=== PATIENT | male | born 1990 | race Caucasian/White ===

== ENCOUNTER 2024-01-13 11:05 | Emergency (ER) | payer BC, SELFPAY ==
[2024-01-13 11:09] VITALS: BP 172/105; PULSE 99; RESP 18; TEMP 36.9; O2SAT 100
--- NOTE | 2024-01-13 11:50 | ED.GENADULT ---
HPI - General Adult General Chief complaint: Anxiety Stated complaint: Anxiety attack Time Seen by Provider: 01/13/24 11:30 Source: patient Mode of arrival: ambulatory Limitations: no limitations History of Present Illness HPI narrative: 34-year-old male, generally healthy, coming in today concerned about anxiety. Patient states that he feels that he has been suffering from anxiety for about 2 weeks. He feels overwhelmed frequently, feels his heart racing at times. He states he has had about 2, what he describes as, panic attacks. He states that he was at work when this happened 1 time and he could not function. He had to cancel a class, he teaches martial arts. He states that his heart was racing and became very nauseated. He stated that he could focus on what he was doing. The other time was today. He states that he took his kids out on a walk when he got home he felt completely overwhelmed with everything and so he came to the ER for treatment. Patient states that he does have a lot going on in his life right now. 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 He also has a toddler any 2-month-old at home. The baby does wake him and his up frequently at night. So his sleep has not been great, his appetite has been down and he feels anxious and jittery frequently. Past medical history significant for ADD as a child. Both parents have a history of anxiety. He takes no medications. Denies drug use. Related Data Previous Rx's ?Medication ?Instructions ?Recorded hydroxyzine HCl 25 mg tablet 25 mg PO BID PRN #7 tabs 01/13/24 Allergies Allergy/AdvReac Type Severity Reaction Status Date / Time No Known Drug Allergies Allergy Verified 01/13/24 11:10 Review of Systems Status of ROS: Reports: 10 or more systems reviewed and unremarkable except as noted in History and below PFSH PFS Social History Smoking Status: Never smoker Do you use any of these nicotine containing products: None Second hand tobacco smoke exposure: No How often do you have a drink containing alcohol: never AUDIT-C Alcohol total score: 0 Non-prescribed substance use: denies use Exam Narrative: Exam Narrative: Well-nourished well-developed patient in no acute distress. Alert and oriented. Answers questions appropriately. Mood and affect are appropriate. Thoughts are goal oriented and rational. No tangential or magical thinking noted. Patient speaks in full sentences without needing to catch his breath. HEENT: Normocephalic atraumatic. Pupils are equally round reactive to light. Extraocular muscles are intact. Conjunctivae are moist without any icterus noted. Moist mucous membranes. Posterior pharynx is normal. Neck is soft without any lymphadenopathy or thyromegaly. No masses are appreciated. Cardiovascular: Heart is regular rate and rhythm S1 and S2 are present without any murmurs. Lungs: Clear to auscultation bilaterally no wheezes rhonchi or rales are appreciated. Patient takes deep breaths without any discomfort. Abdomen: Soft and nontender nondistended with normal bowel sounds. Extremities: Bilateral lower extremities are without edema. Skin: Well perfused without any obvious rashes. Const: Vital Signs, click to edit/add: Vital Signs - 24 hr 01/13/24 11:09 01/13/24 12:29 Temperature 98.4 F Pulse Rate [Right Pulse Oximeter] 99 50 L Respiratory Rate 18 Blood Pressure [Ri ght Upper Arm] 172/105 H 149/89 H Pulse Oximetry 100 100 Oxygen Delivery Me thod Room Air Room Air Course Course ED Course: Patient received a dose of oral Ativan which did help him feel significantly better. His blood pressure was recheck to make came down to 149/89, his pulse went from 99-50 which according the patient is around his baseline. Blood work was unremarkable, as we look for other sources of acute anxiety. TSH slightly elevated at 6.9. We discussed with everything going on his life, we discussed outpatient therapy, establishing care with a primary care provider. Patient was in agreement and had no other questions. Vital Signs Vital signs: Initial Vital Signs Temperature 98.4 F 01/13/24 11:09 Temperature Source Temporal Artery Scan 01/13/24 11:09 Pulse Rate 99 01/13/24 11:09 Pulse Rhythm Regular 01/13/24 11:09 Respiratory Rate 18 01/13/24 11:09 Blood Pressure 172/105 H 01/13/24 11:09 Blood Pressure Mean 127 H 01/13/24 11:09 Blood Pressure Position Sitting 01/13/24 11:09 Pulse Oximetry 100 01/13/24 11:09 Oxygen Delivery Method Room Air 01/13/24 11:09 Vital Signs Temperature 98.4 F 01/13/24 11:09 Pulse Rate 99 01/13/24 11:09 Respiratory Rate 18 01/13/24 11:09 Blood Pressure 172/105 H 01/13/24 11:09 Pulse Oximetry 100 01/13/24 11:09 Oxygen Delivery Method Room Air 01/13/24 11:09 Temperature 98.4 F 01/13/24 11:09 Pulse Rate 50 L 01/13/24 12:29 Respiratory Rate 18 01/13/24 11:09 Blood Pressure 149/89 H 01/13/24 12:29 Pulse Oximetry 100 01/13/24 12:29 Oxygen Delivery Method Room Air 01/13/24 12:29 Medications Administered Medications: Discontinued Medications Generic Name Dose Route Start Last Admin Trade Name Freq PRN Reason Stop Dose Admin Lorazepam 0.5 mg 01/13/24 11:48 01/13/24 12:26 Lorazepam 0.5 Mg Tablet PO 01/13/24 11:49 0.5 mg ONCE ONE Administration Medical Decision Making MDM Narrative Medical decision making narrative: Acute anxiety, plan per above. Lab Data Labs: Lab Results 01/13/24 01/13/24 Range/Units 12:02 12:23 WBC 5.44 (4.50-11.00) K/uL RBC 4.81 (4.30-5.90) m/uL Hgb 14.1 (13.5-17.5) gm/dL Hct 43.5 (37.0-53.0) % MCV 90 (80-100) fL MCH 29 (26-34) pg MCHC 32 (32-36) gm/dL RDW Coeff of Tanner 12.5 (11.5-15.5) % Plt Count 238 (140-440) K/uL Neut % (Auto) 75.8 H (42.0-72.0) % Lymph % (Auto) 16.5 L (20-44) % Carter % (Auto) 6.1 (0.0-11.0) % Eos % (Auto) 0.7 (0.0-7.0) % Baso % (Auto) 0.7 (0.0-3.0) % Neut # (Auto) 4.10 (1.7-7.0) K/uL Lymph # (Auto) 0.90 (0.90-2.90) K/uL Carter # (Auto) 0.30 (0.00-0.90) K/UL Eos # (Auto) 0.04 (0.00-0.50) K/uL Baso # (Auto) 0.04 (0.00-0.30) K/uL Abs Immat Gran (auto) 0.01 (0.00-0.30) K/uL Imm/Tot Granulo (auto) 0.2 % Sodium 137 (135-149) mmol/L Potassium 4.0 (3.6-5.1) mmol/L Chloride 101 (96-114) mmol/L Carbon Dioxide 28 (20-32) mmol/L Anion Gap 8 (7-15) mEq/L BUN 13 (5-24) mg/dL Creatinine 1.0 (0.5-1.5) mg/dL Estimated GFR 101 ml/min Glucose 124 H (60-115) mg/dL Calcium 9.4 (8.4-10.6) mg/dL Total Bilirubin 0.7 (0.1-1.5) mg/dL Direct Bilirubin 0.2 (0.0-0.5) mg/dL AST 33 (12-35) U/L ALT 21 (4-50) U/L Alkaline Phosphatase 51 (40-150) U/L Total Protein 8.4 H (6.0-8.3) g/dL Albumin 5.1 H (3.3-5.0) g/dL TSH 6.910 H (0.270-4.20) uIU/mL Urine Color Yellow (Yellow) Urine Appearance Clear (Clear) Urine pH 7.0 (5.0-8.5) Ur Specific Byron 1.010 (1.000-1.030) Urine Protein Negative (Negative) Urine Glucose (UA) Negative (Negative) Urine Ketones Negative (Negative) Urine Blood Negative (Negative) Urine Nitrite Negative (Negative) Urine Bilirubin Negative (Negative) Urine Urobilinogen 0.2 (0.2-1.0) Ur Leukocyte Esterase Negative (Negative) Urine RBC 0-2 (0-2) Urine WBC 0-2 (0-5) Ur Squamous Epith Cells None (None-Few) Urine Bacteria None (None) Discharge Plan Discharge Clinical Impression: Acute anxiety Patient Disposition: Home, Self-Care Condition: Stable Additional Instructions: 1. Establish care with a primary care provider. 2. Establish care therapist. You also be sent home today with hydroxyzine- this is a medication you can take if you are feeling acutely anxious. Prescriptions: New hydroxyzine HCl 25 mg tablet 25 mg PO BID PRNQty: 7 0RF Follow Up/Referrals: Provider,Not a Local [Primary Care Provider] - Stand Alone Forms: [employer] Info Instructions
[2024-01-13 12:14] LABS: Basophils Absolute Auto 0.04 K/uL (0.00-0.30); Basophils Percent Auto 0.7 % (0.0-3.0); Eosinophils Absolute Auto 0.04 K/uL (0.00-0.50); Eosinophils Percent Auto 0.7 % (0.0-7.0); Hematocrit 43.5 % (37.0-53.0); Hemoglobin* 14.1 gm/dL (13.5-17.5); Immature Granulocytes Abs Auto 0.01 K/uL (0.00-0.30); Immature Granulocytes Pct Auto 0.2 %; Lymphocytes Percent Auto 16.5 % (20-44); Mean Corpuscular HGB Conc 32 gm/dL (32-36); Mean Corpuscular Hemoglobin 29 pg (26-34); Mean Corpuscular Volume 90 fL (80-100); Monocytes Percent Auto 6.1 % (0.0-11.0); Neutrophils Percent Auto 75.8 % (42.0-72.0); Platelet Count* 238 K/uL (140-440); RDW Coefficient of Variation % 12.5 % (11.5-15.5); Red Blood Count 4.81 m/uL (4.30-5.90); White Blood Count* 5.44 K/uL (4.50-11.00)
[2024-01-13 12:16] LABS: Slide Review Reflex No
[2024-01-13] MEDS: LORazepam 0.5 MG TABLET PO (12:26)
[2024-01-13 12:29] VITALS: BP 149/89; PULSE 50; O2SAT 100
[2024-01-13 12:38] LABS: Albumin* 5.1 g/dL (3.3-5.0); Chloride* 101 mmol/L (96-114)
[2024-01-13 12:39] LABS: Sodium* 137 mmol/L (135-149)
[2024-01-13 12:41] LABS: Anion Gap 8 mEq/L (7-15); Carbon Dioxide* 28 mmol/L (20-32); Estimated Glomerular Filt Rate 101 ml/min
[2024-01-13 12:42] LABS: Alanine Aminotransferase* 21 U/L (4-50); Alkaline Phosphatase* 51 U/L (40-150); Aspartate Amino Transferase* 33 U/L (12-35); Bilirubin Direct* 0.2 mg/dL (0.0-0.5); Bilirubin Total* 0.7 mg/dL (0.1-1.5); Blood Urea Nitrogen* 13 mg/dL (5-24); Calcium* 9.4 mg/dL (8.4-10.6); Glucose* 124 mg/dL (60-115); Total Protein* 8.4 g/dL (6.0-8.3)
[2024-01-13 12:54] LABS: Appearance Urine Clear (Clear); Bilirubin Urine Negative (Negative); Blood Urine Negative (Negative); Color Urine Yellow (Yellow); Glucose Urine Negative (Negative); Ketones Urine Negative (Negative); Leukocyte Esterase Urine Negative (Negative); Nitrite Urine Negative (Negative); Protein Urine Negative (Negative); Urobilinogen Urine 0.2 (0.2-1.0)
[2024-01-13 13:00] LABS: RBC Urine 0-2 (0-2); WBC Urine 0-2 (0-5)
== END 2024-01-13 12:56 | disposition home or self-care (01) ==
PROVIDERS: Emergency Provider Family Medicine
DX: F41.9 Anxiety disorder, unspecified (principal)
CPT/HCPCS: 36415; 80048; 80076; 81001; 84443; 85025; 99283; 99284; A9270

== ENCOUNTER 2024-01-25 10:50 | Outpatient (CLI) | payer BC, SELFPAY ==
--- OUTSIDE RECORDS SUMMARY | 2024-01-25 10:55 | XMS_ITS | Clinical Summary ---
Author Organization [facility] Address [place], [place] [address] Care Team Providers Care Communications Operator Name Role Phone Unavailable Primary Care Provider Unavailabl e Allergies No known active allergies Medications Medication Sig Dispensed Refills Start Date End Date Status valACYclovir (VALTREX) 1 gram tabletIndications:He rpes gladiatorum Take 1 tablet by mouth 2 times daily. 14 tablet. 07/09/2020 Active acyclovir (ZOVIRAX) 5 % ointmentIndications: Herpes gladiatorum Apply topically to affected area(s) 6 times daily. 15 g 08/10/2021 Active Immunizations Name Administration Dates Next Due Influenza, IIV4 04/28/2020 Tdap 04/28/2020 Family History Medical History Relation Name Comments Good Health Father Good Health Mother Relation Name Status Comments Brother 1 Alive Brother 2 Alive Father Alive Mother Alive Sister Alive Social History Tobacco Use Types Packs/Day Years Used Date Smoking Tobacco: Never Smokeless Tobacco: Never Tobacco Cessation:Counseling Given: Yes Alcohol Use Standard Drinks/Week Comments Yes 0 (1 standard drink = 0.6 oz pur e alcohol) PHQ-2 Answer Date Recorded PHQ-2 TOTAL SCORE 0 04/28/2020 Social Connections Answer Date Recorded Frequency of Communication with Friends and Fami ly Not on file 07/18/2021 Financial Resource Strain Answer Date R ecorded Difficulty of Paying Living Expenses Not on file 07/18/2021 Difficulty of Paying Living Expenses Not on file 07/18/2021 Sex and Gender Information Value Date Recorded Sex Assigned at Not on file Gender Identity Not on file Sexual Orientation Not on file Obstetrics History Last Filed Vital Signs Vital Sign Reading Time Taken Comments Blood Pressure 120/77 05/08/2020 7:44 AM CDT Pulse 50 05/08/2020 7:42 AM CDT Temperature 36.8 ??C (98.2 ??F) 05/08/2020 7:42 AM CD T Respiratory Rate - - Oxygen Saturation 98% 05/08/2020 7:42 AM CDT Inhaled Oxygen Concentration - - Weight 79.8 kg (176 lb) 05/05/2020 8:05 AM CDT Height 177.8 cm (5' 10) 04/28/2020 9:09 AM CDT Body Mass Index 25.25 04/28/2020 9:09 AM CDT Plan of Treatment Health Maintenance Due Date Last Done Comments HIV for age 15-65 01/08/2004 Hepatitis C screening for ag e 18-79 2007 BMI (ht and wt on same day) for age 18+ 04/28/2021 04/28/2020 Depression screening for age 12+ 04/28/2021 04/28/20 20 COVID-19 vaccine series (2022- season) 2023 Lipids for age 35-44 01/08/2024 Influenza for age 9-49 03/18/2024 04/28/2020 Tetanus booster 04/28/2030 04/28/2020 Tdap Completed 04/28/2020 Pneumococcal series for age 6-64 Aged Out No longer eligible based on patient's age to complete this topic
== END 2024-01-25 10:51 | disposition home or self-care (01) ==
PROVIDERS: Visit Provider Internal Medicine
DX: Z00.00 Encounter for general adult medical examination without abnormal findings (principal); R79.89 Other specified abnormal findings of blood chemistry; F41.9 Anxiety disorder, unspecified; Z13.6 Encounter for screening for cardiovascular disorders
CPT/HCPCS: 80053; 80061; 84439; 84443

== ENCOUNTER 2025-03-19 10:30 | Outpatient (RCR) | payer BC, SELFPAY | END 2025-07-17 23:59 | disposition home or self-care (01) | PROVIDERS: PCP Internal Medicine; Visit Provider Internal Medicine | DX: M54.9 Dorsalgia, unspecified (principal); Z51.89 Encounter for other specified aftercare | CPT/HCPCS: 97110; 97140; 97162 ==